=== PATIENT | female | born 1940 | race Caucasian/White ===

== ENCOUNTER 2018-04-05 09:06 | Emergency (ER) | payer MEDICARE, OTHER ==
[~2018-04-05] VITALS: Ht 162.6 cm; Wt 65.6 kg
--- NOTE | 2018-04-05 09:47 | NUR ---
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
--- NOTE | 2018-04-05 09:51 | NUR ---
PT A&OX4, RESP EVEN & UNLABORED, SPEECH CLEAR. BRUISING LT FOREHEAD EXTENDING TO MID-ANTERIOR NECK, DISCOLORATION UPPER INNER RT CHEEK. STATES SHE TRIPPED & FELL IN [facility] ABOUT 10 DAYS AGO. HIT HEAD ON CONCRETE FLOOR. DENIED LOC. CONCERNED ABOUT ECCHYMOSIS ON NECK. DENIES DYSPNEA, TROUBLE SWALLOWING.
--- NOTE | 2018-04-05 09:56 | NUR ---
DR BARGER BS FOR EXAM. PT DENIES LIGHTHEADEDNESS, DIZZINESS, VISUAL CHANGES, VOMITING, TAKING BLOOD THINNERS. WAS TAKING ECOTRIN 325MG DAILY - DC'D AFTER FALL.
[2018-04-05 09:58] VITALS: BP 175/69
[2018-04-05] MEDS ORDERED: ASPI-650 PO (10:03)
[2018-04-05 10:21] LABS: BASOPHILS # (AUTO) 0.05 x10^3/uL (0-0.1); BASOPHILS % (AUTO) 1 % (0-1); EOSINOPHILS # (AUTO) 0.18 x10^3/uL (0-0.4); EOSINOPHILS % (AUTO) 3 % (1-7); LYMPHOCYTES # (AUTO) 1.89 x10^3/uL (1-3.4); LYMPHOCYTES % (AUTO) 28 % (22-44); MD NO; MEAN CORPUSCULAR HEMOGLOBIN 29.9 pg (27.0-34.8); MEAN CORPUSCULAR HGB CONC 33.3 g/dL (32.4-35.8); MEAN CORPUSCULAR VOLUME 89.8 fL (80-100); MEAN PLATELET VOLUME 7.5 fL (7.4-10.4); MONOCYTES # (AUTO) 0.33 x10^3/uL (0.2-0.8); MONOCYTES % (AUTO) 5 % (2-9); NEUTROPHILS % (AUTO) 64 % (42-75); PLATELET COUNT 333 x10^3/uL (130-400); RED BLOOD COUNT 4.63 x10^6/uL (3.82-5.3); RED CELL DISTRIBUTION WIDTH 13.2 % (9.6-15.2)
[2018-04-05 10:33] LABS: ALANINE AMINOTRANSFERASE 36 U/L (12-78); ALBUMIN 3.8 g/dL (3.4-5.0); ANION GAP 6 mmol/L (5-15); CALCIUM 8.6 mg/dL (8.5-10.1); CHLORIDE 107 mmol/L (98-107); CREATININE 0.84 mg/dL (0.55-1.02)
[2018-04-05 10:36] LABS: ALKALINE PHOSPHATASE 92 U/L (45-117); BILIRUBIN,TOTAL 0.7 mg/dL (0.2-1.0); TOTAL PROTEIN 7.4 g/dL (6.4-8.2)
[2018-04-05 10:40] LABS: INTERNATIONAL NORMALIZED RATIO 1.03 (0.93-1.1); PROTHROMBIN TIME 10.9 Seconds (9.6-11.5)
== END 2018-04-05 11:46 | disposition home or self-care (01) ==
LOC: ED 11:01
DX: S00.83XA Contusion of other part of head, initial encounter (principal); Z87.891 Personal history of nicotine dependence; W19.XXXA Unspecified fall, initial encounter; Y93.89 Activity, other specified; Y92.89 Other specified places as the place of occurrence of the external cause; Y99.8 Other external cause status
CPT/HCPCS: 36415; 80053; 85025; 85610; 85730; 99283